=== PATIENT | female | born 1970 | race Caucasian/White ===

== ENCOUNTER 2016-08-22 07:59 | Emergency (ER) | payer OTHER ==
[~2016-08-22] VITALS: Ht 154.9 cm; Wt 56.8 kg
[~2016-08-22 07:59] MED LIST: SERT100T12 PO; ZIPR80CA2 PO
[2016-08-22 09:48] LABS: BASOPHILS % (AUTO) 0.8 % (0.0-2.0); HEMATOCRIT 35.6 % (36-46); HEMOGLOBIN 11.6 g/dL (12.0-16.0); LYMPHOCYTES # (AUTO) 1.5 K/uL (1.0-4.8); LYMPHOCYTES % (AUTO) 37.4 % (22.0-44.0); MEAN CORPUSCULAR HEMOGLOBIN 27.2 pg (26.0-34.0); MEAN CORPUSCULAR HGB CONC 32.6 G/dL (31.0-37.0); MEAN CORPUSCULAR VOLUME 83 fL (80-100); MONOCYTES # (AUTO) 0.3 K/uL (0.1-1.0); MONOCYTES % (AUTO) 6.8 % (2.0-9.0); PLATELET COUNT (AUTO) 178 K/uL (150-450); RED BLOOD CELL COUNT(AUTO) 4.26 MIL/uL (4.00-5.20); RED CELL DISTRIBUTION WIDTH 14.6 % (11.5-14.5); WHITE BLOOD COUNT (AUTO) 3.9 K/uL (4.5-11.0)
[2016-08-22 09:53] LABS: ANION GAP 7 mmol/L (8-16); CALCIUM, TOTAL 8.5 mg/dL (8.8-10.5); CARBON DIOXIDE 30 mmol/L (22-29); CHLORIDE 102 mmol/L (98-107); CREATININE 0.79 mg/dL (0.60-1.30); GLOMERULAR FILTR. RATE CALC > 60 mL/min (>60); POTASSIUM 4.2 mmol/L (3.5-5.1); SODIUM SERUM 139 mmol/L (136-145); UREA NITROGEN, BLOOD 10 mg/dL (7-18)
[2016-08-22 09:59] LABS: ALANINE AMINOTRANSFERASE 100 U/L (12-78); ALBUMIN 3.5 g/dL (3.4-5.0); ASPARTATE AMINOTRANSFERASE 72 U/L (15-37); BILIRUBIN,TOTAL 0.1 mg/dL (0.1-1.0); TOTAL PROTEIN, SERUM 7.1 g/dL (6.4-8.2)
[2016-08-22 13:08] VITALS: BP 131/87
[2016-08-22] MEDS ORDERED: KETOROLAC TROMETHAMINE 60 MG/2 ML VIAL IM ONE (13:15)
[2016-10-30] MEDS ORDERED: VENL50TA44 PO (14:27)
== END 2016-08-22 13:50 | disposition home or self-care (01) ==
LOC: EMS 08:02
DX: N94.6 Dysmenorrhea, unspecified (principal); N88.8 Other specified noninflammatory disorders of cervix uteri; Z88.5 Allergy status to narcotic agent
CPT/HCPCS: 36415; 76856; 80053; 81002; 84703; 85025; 86850; 86900; 86901; 96372; 99285; J1885

== ENCOUNTER 2016-10-30 14:16 | Emergency (ER) | payer OTHER ==
[~2016-10-30] VITALS: Ht 154.9 cm; Wt 63.6 kg
[2016-10-30] MEDS ORDERED: OMEP10SU PO (14:27)
[2016-10-30] MEDS ORDERED: GABA-529 PO (14:27)
[2016-10-30] MEDS ORDERED: VENL50 PO (14:27)
[2016-10-30] MEDS ORDERED: ONDANSETRON HCL 4 MG/2 ML VIAL IVP ONE (15:15)
[2016-10-30] MEDS ORDERED: PANTOPRAZOLE SODIUM 40 MG/VIAL IVP ONE (15:15)
[2016-10-30] MEDS ORDERED: FAMOTIDINE 10 MG/ML 2 ML VIAL IVP ONE (15:15)
[2016-10-30] MEDS ORDERED: SODIUM CHLORIDE 0.9% 1,000 ML IV ONE (15:15)
[2016-10-30] MEDS ORDERED: LORazepam 2 MG/ML VIAL IVP ONE (15:30)
[2016-10-30 16:00] LABS: BASOPHILS # (AUTO) 0.04 K/uL (0.00-0.20); BASOPHILS % (AUTO) 0.5 % (0.0-2.0); EOSINOPHILS # (AUTO) 0.04 K/uL (0.00-0.70); EOSINOPHILS % (AUTO) 0.39 % (1.0-6.0); HEMATOCRIT 39.2 % (36-46); HEMOGLOBIN 12.9 g/dL (12.0-16.0); LYMPHOCYTES # (AUTO) 2.5 K/uL (1.0-4.8); MEAN CORPUSCULAR HEMOGLOBIN 27.1 pg (26.0-34.0); MEAN CORPUSCULAR HGB CONC 32.9 G/dL (31.0-37.0); MEAN CORPUSCULAR VOLUME 82 fL (80-100); MONOCYTES # (AUTO) 0.3 K/uL (0.1-1.0); MONOCYTES % (AUTO) 3.4 % (2.0-9.0); NEUTROPHILS # (AUTO) 6.1 K/uL (1.8-7.7); NEUTROPHILS % (AUTO) 67.8 % (40.0-70.0); PLATELET COUNT (AUTO) 228 K/uL (150-450); RED BLOOD CELL COUNT(AUTO) 4.76 MIL/uL (4.00-5.20); RED CELL DISTRIBUTION WIDTH 16.7 % (11.5-14.5); WHITE BLOOD COUNT (AUTO) 8.9 K/uL (4.5-11.0)
[2016-10-30 16:10] LABS: ANION GAP 8 mmol/L (8-16); CALCIUM, TOTAL 8.9 mg/dL (8.8-10.5); CARBON DIOXIDE 29 mmol/L (22-29); CHLORIDE 103 mmol/L (98-107); CREATININE 0.76 mg/dL (0.60-1.30); GLOMERULAR FILTR. RATE CALC > 60 mL/min (>60); SODIUM SERUM 140 mmol/L (136-145); UREA NITROGEN, BLOOD 8 mg/dL (7-18)
[2016-10-30 16:15] LABS: ALANINE AMINOTRANSFERASE 26 U/L (12-78); ASPARTATE AMINOTRANSFERASE 18 U/L (15-37); BILIRUBIN,TOTAL 0.3 mg/dL (0.1-1.0)
[2016-10-30 17:36] LABS: APPEARANCE,URINE CLEAR (CLEAR); GLUCOSE, URINE (UA) NEGATIVE (NEGATIVE); KETONES,URINE TRACE mg/dL (NEGATIVE); LEUKOCYTE ESTERASE ,URINE NEGATIVE (NEGATIVE); OCCULT BLOOD,URINE NEGATIVE (NEGATIVE); PH,URINE 6.5 (5.0-8.0); PROTEIN,URINE NEGATIVE (NEGATIVE)
[2016-10-30 17:40] LABS: ADD UA MICROSCOPIC NO
[2016-10-30 17:52] VITALS: BP 122/89
== END 2016-10-30 18:37 | disposition home or self-care (01) ==
LOC: EMS 14:17
DX: K21.9 Gastro-esophageal reflux disease without esophagitis (principal); K29.90 Gastroduodenitis, unspecified, without bleeding; K29.70 Gastritis, unspecified, without bleeding; F41.9 Anxiety disorder, unspecified; F32.9 Major depressive disorder, single episode, unspecified; G43.909 Migraine, unspecified, not intractable, without status migrainosus; Z87.11 Personal history of peptic ulcer disease; Z88.5 Allergy status to narcotic agent
CPT/HCPCS: 36415; 80053; 80307; 81003; 85025; 96361; 96374; 96375; 99285; C9113; J2060; J2405; J3490; J7030

== ENCOUNTER 2020-04-26 16:28 | Inpatient (IN) | payer MEDICAID, OTHER ==
[~2020-04-26] VITALS: Ht 154.9 cm; Wt 56.8 kg
[~2020-04-26 16:28] MED LIST changes: +GABA-529 PO; +OMEP10SU2 PO; -SERT100T12 PO; +VENL50TA44 PO
[2020-04-26] MEDS ORDERED: SERT50TA12 PO (18:08)
[2020-04-26] MEDS ORDERED: HYDR50CA9 PO (18:08)
[2020-04-26 18:26] LABS: BASOPHILS % (AUTO) 0.5 % (0.0-2.0); EOSINOPHILS % (AUTO) 1.3 % (1.0-6.0); HEMATOCRIT 46.4 % (36-46); HEMOGLOBIN 15.5 g/dL (12.0-16.0); LYMPHOCYTES # (AUTO) 2.1 K/uL (1.0-4.8); MEAN CORPUSCULAR HEMOGLOBIN 28.8 pg (26.0-34.0); MEAN CORPUSCULAR HGB CONC 33.4 G/dL (31.0-37.0); MEAN CORPUSCULAR VOLUME 86 fL (80-100); MONOCYTES # (AUTO) 0.4 K/uL (0.1-1.0); MONOCYTES % (AUTO) 4.3 % (2.0-9.0); NEUTROPHILS # (AUTO) 6.8 K/uL (1.8-7.7); NEUTROPHILS % (AUTO) 71.9 % (40.0-70.0); PLATELET COUNT (AUTO) 227 K/uL (150-450); RED BLOOD CELL COUNT(AUTO) 5.37 MIL/uL (4.00-5.20); RED CELL DISTRIBUTION WIDTH 13.5 % (11.5-14.5)
[2020-04-26 18:41] LABS: ANION GAP 8 mmol/L (8-16); CALCIUM, TOTAL 9.9 mg/dL (8.8-10.5); CARBON DIOXIDE 30 mmol/L (22-29); CHLORIDE 103 mmol/L (98-107); CREATININE 0.98 mg/dL (0.60-1.30); GLOMERULAR FILTR. RATE CALC 60 mL/min (>60); GLUCOSE,RANDOM 92 mg/dL (70-110); POTASSIUM 4.5 mmol/L (3.5-5.1); SODIUM SERUM 141 mmol/L (136-145); UREA NITROGEN, BLOOD 22 mg/dL (7-18)
[2020-04-26 18:48] LABS: ALANINE AMINOTRANSFERASE 31 U/L (12-78); ALBUMIN 4.5 g/dL (3.4-5.0); ALKALINE PHOSPHATASE 93 U/L (46-116); ASPARTATE AMINOTRANSFERASE 25 U/L (15-37); BILIRUBIN,TOTAL 0.5 mg/dL (0.1-1.0)
[2020-04-26 19:50] LABS: COVID AG,FIA SOURCE NASOPHARYNGEAL
[2020-04-26 20:19] LABS: HCG,QUANTITATIVE 9 mIU/mL (0-6)
[2020-04-26] MEDS ORDERED: MAGNESIUM HYDROXIDE SUSPENSION 30 ML UDCUP PO PRN (22:15)
[2020-04-26] MEDS ORDERED: ACETAMINOPHEN 325 MG TABLET PO PRN (22:15)
[2020-04-26] MEDS ORDERED: GuaiFENesin/D-METHORPHAN [SUGAR-FREE] 200-20MG/10 ML SYRUP UDCUP PO PRN (22:15)
[2020-04-26] MEDS ORDERED: ZOLPIDEM TARTRATE 10 MG TABLET PO PRN (22:15)
[2020-04-26] MEDS ORDERED: NICOTINE 14 MG/24 HOUR PATCH TD PRN (22:15)
[2020-04-26] MEDS ORDERED: DOCUSATE SODIUM 100 MG CAPSULE PO PRN (22:15)
[2020-04-26] MEDS ORDERED: IBUPROFEN 400 MG TABLET PO PRN (22:15)
[2020-04-26] MEDS ORDERED: ALBUTEROL SULFATE HFA 90 MCG/PUFF 8 GM INHALER IH PRN (22:15)
[2020-04-26] MEDS ORDERED: CloNIDine HCL 0.1 MG TABLET PO PRN (22:15)
[2020-04-26] MEDS ORDERED: ONDANSETRON HCL 4 MG TABLET PO PRN (22:15)
[2020-04-26] MEDS ORDERED: MAG HYDROX/AL HYDROX/SIMETH ES 30 ML SUSPENSION UDCUP PO PRN (22:15)
[2020-04-26] MEDS ORDERED: LOPERAMIDE HCL 2 MG CAPSULE PO PRN (22:15)
[2020-04-26] MEDS ORDERED: PETROLATUM,WHITE 28 GM JELLY TP PRN (22:15)
[2020-04-27 01:53] VITALS: BP 140/87
[2020-04-27 07:59] LABS: CHOL/HDL RATIO 2.7 (3.9-5.7)
[2020-04-27 08:08] VITALS: BP 127/71
[2020-04-27] MEDS: HALOPERIDOL 5 MG TABLET PO PRN (13:21)
[2020-04-27] MEDS: SERTRALINE HCL 50 MG TABLET PO SCH (13:21)
[2020-04-27] MEDS: LORazepam 1 MG TABLET PO PRN (13:21)
[2020-04-27 17:55] VITALS: BP 122/66
[2020-04-27] MEDS: RisperiDONE 2 MG TABLET PO SCH (20:30)
[2020-04-28 01:51] VITALS: BP 110/68
[2020-04-28 08:06] VITALS: BP_SYST 107; BP_SYST 134; BP_DIAS 67; BP_DIAS 82
[2020-04-28] MEDS: SERTRALINE HCL 50 MG TABLET PO SCH (08:48)
[2020-04-28 18:57] VITALS: BP 144/79
[2020-04-28] MEDS: RisperiDONE 2 MG TABLET PO SCH (20:18)
[2020-04-29 04:53] VITALS: BP 132/76
[2020-04-29 08:14] VITALS: BP 116/59
[2020-04-29] MEDS: SERTRALINE HCL 50 MG TABLET PO SCH (08:16)
[2020-04-29 16:05] VITALS: BP 109/70
[2020-04-29] MEDS: LORazepam 1 MG TABLET PO PRN (17:02)
[2020-04-29] MEDS: RisperiDONE 2 MG TABLET PO SCH (20:14)
[2020-04-30 00:53] VITALS: BP 102/74
[2020-04-30 08:09] VITALS: BP 110/70
[2020-04-30] MEDS: SERTRALINE HCL 50 MG TABLET PO SCH (08:22)
[2020-04-30 16:04] VITALS: BP 121/77
[2020-04-30] MEDS: HALOPERIDOL 5 MG TABLET PO PRN (16:13)
[2020-04-30] MEDS: LORazepam 1 MG TABLET PO PRN (16:13)
[2020-04-30] MEDS: RisperiDONE 2 MG TABLET PO SCH (21:00)
[2020-05-01 01:20] VITALS: BP 117/69
[2020-05-01] MEDS: SERTRALINE HCL 50 MG TABLET PO SCH (08:12)
[2020-05-01 08:18] VITALS: BP 110/66
[2020-05-01] MEDS ORDERED: RISP2TAB23 PO (10:48)
== END 2020-05-01 12:00 | disposition home or self-care (01) | DRG 750 ==
LOC: EMS 16:31 → B3A 22:08 → UNDOADMIN 22:44 → B3A 22:44
PROVIDERS: ADMIT Psychiatry & Neurology Child & Adolescent Psychiatry; ATTEND Psychiatry & Neurology Child & Adolescent Psychiatry
DX: F20.9 Schizophrenia, unspecified (principal); F22 Delusional disorders; F43.10 Post-traumatic stress disorder, unspecified; G43.909 Migraine, unspecified, not intractable, without status migrainosus; K21.9 Gastro-esophageal reflux disease without esophagitis; R45.851 Suicidal ideations; F32.9 Major depressive disorder, single episode, unspecified; F41.9 Anxiety disorder, unspecified; F19.10 Other psychoactive substance abuse, uncomplicated; Z88.5 Allergy status to narcotic agent; Z79.899 Other long term (current) drug therapy; Z03.818 Encounter for observation for suspected exposure to other biological agents ruled out
CPT/HCPCS: 83036; 87426; G0480

== ENCOUNTER 2020-10-11 11:49 | Emergency (ER) | payer MEDICAID, OTHER ==
[~2020-10-11] VITALS: Ht 154.9 cm; Wt 54.5 kg
[~2020-10-11 11:49] MED LIST changes: -GABA-529 PO; -OMEP10SU2 PO; +RISP2TAB45 PO; +SERT-158 PO; -VENL50TA44 PO; -ZIPR80CA2 PO
[2020-10-11 12:23] LABS: BASOPHILS % (AUTO) 0.5 % (0.0-2.0); EOSINOPHILS % (AUTO) 3.4 % (1.0-6.0); HEMATOCRIT 41.8 % (36-46); HEMOGLOBIN 13.8 g/dL (12.0-16.0); LYMPHOCYTES # (AUTO) 2.4 K/uL (1.0-4.8); LYMPHOCYTES % (AUTO) 44.6 % (22.0-44.0); MEAN CORPUSCULAR HGB CONC 33.2 G/dL (31.0-37.0); MEAN CORPUSCULAR VOLUME 88 fL (80-100); MONOCYTES # (AUTO) 0.3 K/uL (0.1-1.0); MONOCYTES % (AUTO) 4.9 % (2.0-9.0); NEUTROPHILS # (AUTO) 2.5 K/uL (1.8-7.7); NEUTROPHILS % (AUTO) 46.6 % (40.0-70.0); PLATELET COUNT (AUTO) 225 K/uL (150-450); RED BLOOD CELL COUNT(AUTO) 4.77 MIL/uL (4.00-5.20); RED CELL DISTRIBUTION WIDTH 12.8 % (11.5-14.5)
[2020-10-11 12:32] LABS: ANION GAP 6 mmol/L (8-16); CALCIUM, TOTAL 9.4 mg/dL (8.8-10.5); CARBON DIOXIDE 28 mmol/L (22-29); CHLORIDE 105 mmol/L (98-107); GLOMERULAR FILTR. RATE CALC > 60 mL/min (>60); GLUCOSE,RANDOM 109 mg/dL (70-110); POTASSIUM 3.7 mmol/L (3.5-5.1); SODIUM SERUM 139 mmol/L (136-145); UREA NITROGEN, BLOOD 17 mg/dL (7-18)
[2020-10-11 12:44] LABS: ALANINE AMINOTRANSFERASE 29 U/L (12-78); ALBUMIN 3.9 g/dL (3.4-5.0); ALKALINE PHOSPHATASE 95 U/L (46-116); ASPARTATE AMINOTRANSFERASE 21 U/L (15-37); BILIRUBIN,TOTAL 0.4 mg/dL (0.1-1.0); HCG,QUANTITATIVE 7 mIU/mL (0-6); TOTAL PROTEIN, SERUM 7.8 g/dL (6.4-8.2)
[2020-10-11] MEDS ORDERED: HALOPERIDOL 5 MG TABLET PO ONE (13:15)
[2020-10-11 15:17] LABS: COVID AG,FIA SOURCE NASOPHARYNGEAL
[2020-10-11 17:30] VITALS: BP 140/85
== END 2020-10-11 18:12 | disposition home or self-care (01) ==
LOC: EMS 11:49
DX: R45.1 Restlessness and agitation (principal); F41.9 Anxiety disorder, unspecified; F32.9 Major depressive disorder, single episode, unspecified; Z20.822 Contact with and (suspected) exposure to COVID-19
CPT/HCPCS: 36415; 80053; 84702; 85025; 87426; 99285; G0480; 99284